=== PATIENT | female | born 1995 | race Caucasian/White ===

== ENCOUNTER → 2018-01-27 | Outpatient (CLI) | payer OTHER, MEDICARE, MEDICAID ==
[~2018-01-27] MED LIST: ALBU2.5V36 INH; ARI2 PO; BENZ100C4 PO; CLON-329 PO; FLUO40CA76 PO; IPRA15SP7 NS; LACT1CAP9 PO; LEV112 PO; LEVO137T3 PO; LORA10CA3 PO; MELA10CA PO; METF-410 PO; MUPI22OI28 TP; ONDA8TAB98 PO
== END ==
LOC: LAB 12:25
PROVIDERS: ATTEND Internal Medicine Endocrinology, Diabetes & Metabolism
DX: E03.9 Hypothyroidism, unspecified (principal)
CPT/HCPCS: 36415; 84439; 84443

== ENCOUNTER → 2018-03-17 | Outpatient (CLI) | payer OTHER, MEDICARE, MEDICAID ==
[~2018-03-17] MED LIST changes: -METF-410 PO; +METF-411 PO
== END ==
LOC: LAB 09:51
PROVIDERS: ATTEND Internal Medicine Endocrinology, Diabetes & Metabolism
DX: E03.9 Hypothyroidism, unspecified (principal)
CPT/HCPCS: 36415; 84439; 84443

== ENCOUNTER 2018-07-06 19:26 | Emergency (ER) | payer OTHER, MEDICARE, MEDICAID ==
[~2018-07-06 19:26] MED LIST changes: -METF-411 PO; +METF-450 PO
[2018-07-06 19:31] VITALS: BP 106/83
[2018-07-06] MEDS ORDERED: LEVO-3 PO (19:35)
[2018-07-06] MEDS ORDERED: OMEP-125 PO (19:35)
--- NOTE | 2018-07-06 19:36 | ER Report ---
History and Physical Time Seen By MD: 19:36 Hx. of Stated Complaint: patient has had a cough for the last 3days, patient has vomited from gagging on flem. HPI/ROS CHIEF COMPLAINT: Cough HISTORY OF PRESENT ILLNESS: 23-year-old female patient presents to emergency room with complaint of cough. Patient's mother states the patient has been having a cough for the last 3 days. She's has significant amounts of sinus congestion. She states that she has vomited 5 this afternoon. She states that she did have a fever with a cough initially started. She states she did not actually check her temperature, just stated that she was sweating while she slept. She states that she has been eating and drinking normally. She has not taken any medication for this. She states that did go to urgent care stating that they felt that she probably needed an x-ray, breathing treatment and then get treatment. Mother states the patient did have some chills today. She denies having any diarrhea. REVIEW OF SYSTEMS: Respiratory: As noted above Cardiovascular: No chest pain, no palpitations. Gastrointestinal: No vomiting, no abdominal pain. Musculoskeletal: No back pain. Allergies: Coded Allergies: No Known Drug Allergies (Unverified , 07/06/18) Home Meds Active Scripts Albuterol Sulfate 0.083% (ALBUTEROL SULFATE 0.083%) 2.5 Mg/3 Ml Vial.neb, 2.5 MG INH Q4-6H PRN for SHORTNESS OF BREATH, #20 VIAL Prov:GEOVANY RANDOLPH [facility] 07/06/18 Amoxicillin/Pot Clav 875-125 Mg Tab (AUGMENTIN 875-125 TABLET) 1 Each Tablet, 1 TAB PO Q12H, #14 TAB Prov:GEOVANY RANDOLPH [facility] 07/06/18 Reported Medications Omeprazole (OMEPRAZOLE) 20 Mg Capsule.dr, 1 CAP PO QDAY, CAP 07/06/18 Levothyroxine Sodium (LEVOTHYROXINE SODIUM) 100 Mcg Tablet, 100 MCG PO QDAY, TAB 07/06/18 Aripiprazole (ABILIFY) 2 Mg Tablet, 2 MG PO EVENING, TAB 02/14/17 Fluoxetine Hcl (PROZAC) 40 Mg Capsule, 40 MG PO QDAY, CAPSULE 02/08/15 Clonidine Hcl (CLONIDINE HCL) 0.2 Mg Tablet, 0.2 MG PO HS, TAB TAKE 1 TABLET BY MOUTH TWICE DAILY 4/11/15 Discontinued Reported Medications Metformin Hcl (METFORMIN HCL) 500 Mg Tablet, 1 TAB PO QDAY, TAB 10/14/17 Levothyroxine Sodium (LEVOTHYROXINE SODIUM) 0.112 Mg Tab, 0.112 MG PO QDAY, TAB 10/14/17 Lactobacillus Combo No.10 (PROBIOTIC) 1 Each Capsule, 1 EACH PO DAILY, CAPSULE 02/14/17 Melatonin (MELATONIN) 10 Mg Capsule, 10 MG PO HS, CAPSULE 02/08/15 Loratadine (CLARITIN) 10 Mg Capsule, 10 MG PO DAILY, CAPSULE 02/08/15 Discontinued Scripts Ipratropium Daisy 0.06% Ns (IPRATROPIUM BROMIDE 0.06% NS) 15 Ml [place], 2 SPRAYS NS BID for 30 Days, #1 BOT 11 Refills Prov:NIDA CHO JR, MD 12/02/17 Mupirocin (MUPIROCIN) 22 Gm Oint...g., 1 VANI TP BID for 14 Days, #1 TUBE Prov:NIDA CHO JR, MD 12/02/17 Past Medical/Surgical History Patient has a past medical history of Down's, reactive airway disease, reflux, hypothyroidism, anxiety. Patient has surgical history of hysterectomy, retinal detachment repair, tubes in ears, tonsillectomy. Reviewed Nurses Notes: Yes Hx Smoking: No Smoking Status: Never Smoker Hx Substance Use Disorder: No Hx Alcohol Use: No Constitutional Vital Sign - Last 24 Hours 07/06/18 07/06/18 07/06/18 07/06/18 19:31 19:52 19:52 19:57 Temp 97.5 Pulse 91 78 83 Resp 16 20 20 B/P (MAP) 106/83 Pulse Ox 96 97 O2 Delivery Room Air Physical Exam General Appearance: The patient is alert, has no immediate need for airway protection and no current signs of toxicity. ENT: Tympanic membranes are pearly-abdi, auditory canals are patent, mucous membranes are moist, patient does have some erythema in the posterior pharynx. She has significant amount of sinus drainage noted on exam. Respiratory: Chest is non tender, lungs are clear to auscultation. Cardiac: regular rate and rhythm Gastrointestinal: Abdomen is soft and non tender, no masses, bowel sounds normal. Musculoskeletal: Neck: Neck is supple and non tender. Extremities have full range of motion and are non tender. Skin: No rashes or lesions. DIFFERENTIAL DIAGNOSIS: After history and physical exam differential diagnosis was considered for viral syndrome, sinusitis, upper respiratory infection, reflux. Medical Decision Making Data Points Result Diagram: 07/06/18203407/06/182034 Laboratory Hematology Test 07/06/18 19:42 07/06/18 20:35 Group A Streptococcus Screen Negative (NEGATIVE) Red Blood Count 4.66 M/uL (4.17-5.56) Mean Corpuscular Volume 89.8 fL (80.0-96.0) Mean Corpuscular Hemoglobin 31.8 pg (26.0-33.0) Mean Corpuscular Hemoglobin Concent 35.5 g/dL (32.0-36.0) Red Cell Distribution Width 13.3 % (11.5-14.5) Mean Platelet Volume 7.0 fL (7.2-11.1) Neutrophils (%) (Auto) 82.2 % (39.4-72.5) Lymphocytes (%) (Auto) 11.5 % (17.6-49.6) Monocytes (%) (Auto) 5.2 % (4.1-12.4) Eosinophils (%) (Auto) 0.3 % (0.4-6.7) Basophils (%) (Auto) 0.8 % (0.3-1.4) Nucleated RBC Relative Count (auto) 0.0 /100WBC Neutrophils # (Auto) 9.1 K/uL (2.0-7.4) Lymphocytes # (Auto) 1.3 K/uL (1.3-3.6) Monocytes # (Auto) 0.6 K/uL (0.3-1.0) Eosinophils # (Auto) 0.0 K/uL (0.0-0.5) Basophils # (Auto) 0.1 K/uL (0.0-0.1) Nucleated RBC Absolute Count (auto) 0.00 K/uL Peripheral Blood Smear Yes Y/N Sodium Level 124 mmol/L (137-145) Potassium Level 3.3 mmol/L (3.5-5.0) Chloride Level 91 mmol/L (98-107) Carbon Dioxide Level 24 mmol/L (22-31) Blood Urea Nitrogen 12 mg/dl (7-18) Creatinine 0.80 mg/dl (0.52-1.04) Glomerular Filtration Rate Calc > 60.0 Random Glucose 91 mg/dl (75-110) Calcium Level 8.6 mg/dl (8.4-10.2) Total Bilirubin 0.8 mg/dl (0.2-1.3) Aspartate Amino Transf (AST/SGOT) 35 U/L (0-35) Alanine Aminotransferase (ALT/SGPT) 24 U/L (0-56) Alkaline Phosphatase 79 U/L (0-126) Total Protein 7.3 g/dl (6.3-8.2) Albumin 4.2 g/dl (3.5-5.0) Chemistry Test 07/06/18 19:42 07/06/18 20:35 Group A Streptococcus Screen Negative (NEGATIVE) White Blood Count 11.1 k/uL (4.5-11.0) Red Blood Count 4.66 M/uL (4.17-5.56) Hemoglobin 14.8 g/dL (12.0-16.0) Hematocrit 41.8 % (34.0-47.0) Mean Corpuscular Volume 89.8 fL (80.0-96.0) Mean Corpuscular Hemoglobin 31.8 pg (26.0-33.0) Mean Corpuscular Hemoglobin Concent 35.5 g/dL (32.0-36.0) Red Cell Distribution Width 13.3 % (11.5-14.5) Platelet Count 388 K/uL (150-450) Mean Platelet Volume 7.0 fL (7.2-11.1) Neutrophils (%) (Auto) 82.2 % (39.4-72.5) Lymphocytes (%) (Auto) 11.5 % (17.6-49.6) Monocytes (%) (Auto) 5.2 % (4.1-12.4) Eosinophils (%) (Auto) 0.3 % (0.4-6.7) Basophils (%) (Auto) 0.8 % (0.3-1.4) Nucleated RBC Relative Count (auto) 0.0 /100WBC Neutrophils # (Auto) 9.1 K/uL (2.0-7.4) Lymphocytes # (Auto) 1.3 K/uL (1.3-3.6) Monocytes # (Auto) 0.6 K/uL (0.3-1.0) Eosinophils # (Auto) 0.0 K/uL (0.0-0.5) Basophils # (Auto) 0.1 K/uL (0.0-0.1) Nucleated RBC Absolute Count (auto) 0.00 K/uL Peripheral Blood Smear Yes Y/N Glomerular Filtration Rate Calc > 60.0 Calcium Level 8.6 mg/dl (8.4-10.2) Total Bilirubin 0.8 mg/dl (0.2-1.3) Aspartate Amino Transf (AST/SGOT) 35 U/L (0-35) Alanine Aminotransferase (ALT/SGPT) 24 U/L (0-56) Alkaline Phosphatase 79 U/L (0-126) Total Protein 7.3 g/dl (6.3-8.2) Albumin 4.2 g/dl (3.5-5.0) EKG/Imaging Imaging CHEST PA AND LAT HISTORY: Respiratory distress. COMPARISON: 12/23/2016 FINDINGS: Lines/tubes: None. Lungs/pleura: Negative. Heart: Negative. Mediastinum: Negative. Bony structures/body wall: Healed left upper rib fractures. Mild convex leftward curvature of the thoracic spine. No acute osseous findings. IMPRESSION: No acute cardiopulmonary process. Report Dictated By: Paolo Wilkins MD at 07/06/2018 8:11 PM Report E-Signed By: Paolo Wilkins MD at 07/06/2018 8:13 PM ED Course/Re-evaluation ED Course Patient was admitted to exam room, history and physical were obtained. Differential diagnoses were considered. On examination lungs are clear, heart was regular, abdomen soft nontender. Patient did have a persistent cough. Patient was treated with a DuoNeb. A chest x-ray was done which was negative. A CBC, CMP was done. Patient had a white count of 11.1 with a left shift. She also had a low sodium of 124. I discussed the findings with her mother. We will go ahead and treat her for sinusitis. We will give her a dose of Augmentin here and send her with one that she can take tomorrow morning. I would like her to limit her fluid intake and increase salt in her diet. I like her follow-up with her primary care provider in one week. She is return to emergency room if condition worsens. I discussed with her mother that the signs of low sodium included confusion and she is return if that occurs. Mother verbalized understanding and agreement with plan. Decision to Disposition Date: Jul 06, 2018 Decision to Disposition Time: 21:16 Depart Departure Latest Vital Signs Vital Signs Date Time Temp Pulse Resp B/P (MAP) Pulse Ox O2 Delivery O2 Flow Rate FiO2 07/06/18 19:57 83 20 07/06/18 19:52 97 Room Air 07/06/18 19:31 97.5 106/83 Impression: Primary Impression: Cough Additional Impression: Nausea & vomiting Condition: Improved Disposition: HOME OR SELF-CARE Referrals: ALYSA BERGER PA-C (PCP) New Scripts Albuterol Sulfate 0.083% (ALBUTEROL SULFATE 0.083%) 2.5 Mg/3 Ml Vial.neb 2.5 MG INH Q4-6H PRN for SHORTNESS OF BREATH, #20 VIAL Prov: GEOVANY RANDOLPH 07/06/18 Amoxicillin/Pot Clav 875-125 Mg Tab (AUGMENTIN 875-125 TABLET) 1 Each Tablet 1 TAB PO Q12H, #14 TAB Prov: GEOVANY RANDOLPH 07/06/18 Patient Instructions: Acute Cough (ED) Additional Instructions: Increase fluid intake. Get plenty of rest. Follow up with Isabelle Berger in the next week. I would like you to limit her fluid intake. Increase salt in her diet. Return to the ER if condition worsens. Use the Albuterol that you have at home tonight, I sent in a prescription if you need it. Take the Antibiotics as directed. Continue with normal medications. Problem Qualifiers Additional Impression: Nausea & vomiting Vomiting type: unspecified Vomiting Intractability: non-intractable Qualified Codes: R11.2 - Nausea with vomiting, unspecified GEOVANY RANDOLPH Jul 06, 2018 19:36
[2018-07-06] MEDS ORDERED: ALBUTEROL/IPRATROPIUM 3 ML NEB NEB ONE (19:45)
--- NOTE | 2018-07-06 20:15 | RADIOLOGY IMAGING REPORT ---
FACILITY: [facility] PATIENT NAME: Kimberlyn Ramos : 1995 MR: [id number] V: [id number] EXAM DATE: ORDERING PHYSICIAN: GEOVANY RANDOLPH TECHNOLOGIST: [place] [facility] [place] Kimberlyn Ramos : 1995 Visit/Account:[id number] Date of Sevice: 07/06/2018 CHEST PA AND LAT HISTORY: Respiratory distress. COMPARISON: 12/23/2016 FINDINGS: Lines/tubes: None. Lungs/pleura: Negative. Heart: Negative. Mediastinum: Negative. Bony structures/body wall: Healed left upper rib fractures. Mild convex leftward curvature of the th oracic spine. No acute osseous findings. IMPRESSION: No acute cardiopulmonary process. Report Dictated By: Paolo Wilkins MD at 07/06/2018 8:11 PM Report E-Signed By: Paolo Wilkins MD at 07/06/2018 8:13 PM [id number]
[2018-07-06] MEDS ORDERED: LIDOCAINE 2% VISC SLN 15ML UDC PO ONE (20:45)
[2018-07-06 20:54] LABS: PLATELET COUNT, AUTOMATED 388 K/uL (150-450)
[2018-07-06] MEDS ORDERED: SODIUM CHLORIDE 1 GR TAB PO ONE (20:55)
[2018-07-06] MEDS ORDERED: AMOX-559 PO (21:13)
[2018-07-06] MEDS ORDERED: ALBU2.5V36 INH (21:13)
[2018-07-06] MEDS ORDERED: AMOX/CLAV 875 MG TAB PO ONE (21:20)
== END 2018-07-06 21:32 | disposition home or self-care (01) ==
LOC: ER 19:33
DX: R05 Cough (principal); R11.2 Nausea with vomiting, unspecified
CPT/HCPCS: 36415; 71046; 85025; 87081; 87880; 94640; 99283; J7620; 82040; 82247; 82310; 82374; 82435; 82565; 82947; 84075; 84132; 84155; 84295; 84450; 84460; 84520